=== PATIENT | female | born 1945 | race Caucasian/White ===

== ENCOUNTER 2018-10-13 08:25 | Emergency (ER) | payer OTHER ==
[2018-10-13 08:47] VITALS: BP 146/80; TEMP 97.8; BMI 24.7
--- NOTE | 2018-10-13 09:07 | ED.PDOC ---
General ED Provider: Dr. TERE NUNEZ Chief Complaint: Foot Pain/Injury Stated Complaint: Lt foot pain. Hx prev fracture distal 5th metatarsal. Was seen by ortho-placed in walking foot. Is From [place] and traveling back home from [place]. Last evening was not wearing her boot and accidently struck /twisted lt foot against concreted curb. Experienced sever pain. No deformity. Time Seen by Physician: 08:50 Mode of Arrival: Walk-In Information Source: Patient Nursing and Triage Documentation Reviewed and Agree: Yes Does patient meet sepsis criteria?: No If yes, has appropriate treatment been initiated?: No System Inflammatory Response Syndrome: Not Applicable Sepsis Protocol: For patient's 13 years and over: Temp is 96.8 and below OR 101 and greater Pulse >90 BPM Resp >20/minute Acutely Altered Mental Status Are patient's symptoms suggestive of a new infection, such as: -Pneumonia -Skin, Soft Tissue -Endocarditis -UTI -Bone, Joint Infection -Implantable Device -Acute Abdominal Infection -Wound Infection -Meningitis -Blood Stream Catheter Infection -Unknown Musculoskeletal Complaint Exam - Ankle/Foot Complaint/Exam Location of Injury: Reports: Left, Foot (5th metatarsal) Mechanism of Injury: Reports: Trauma Onset/Duration: 12 hrs Symptoms Are: Reports: Still present Onset of Pain: Reports: Immediate, Post accident Initial Severity: Mild Current Severity: Moderate Location: Reports: Discrete Character: Reports: Aching, Throbbing Alleviating: Reports: Rest, Cold Aggravating: Reports: Movement, Weight bearing Able to Bear Weight: Yes Associated Signs and Symptoms: Reports: Swelling Related History: Reports: Similar episode Gout Risk Factors: Reports: None, Hyperlipidemia Lower Extremity Findings: Present: Swelling, Tenderness Achilles Tendon Abnormality: No Tenderness: Present: Metatarsals Ankle/Foot Picture: 1 - distal lt 5th MT Differential Diagnosis: Closed Fracture, Strain Review of Systems - Review Of Systems Constitutional: Reports: No symptoms Eyes: Reports: No symptoms Ears, Nose, Mouth, Throat: Reports: No symptoms Respiratory: Reports: No symptoms Cardiac: Reports: No symptoms GI: Reports: No symptoms : Reports: No symptoms Musculoskeletal: Reports: No symptoms Skin: Reports: No symptoms Neurological: Reports: No symptoms Endocrine: Reports: No symptoms Hematologic/Lymphatic: Reports: No symptoms All Other Systems: Reviewed and Negative Past Medical History - Past Medical History Previously Healthy: Yes Endocrine: Reports: None Cardiovascular: Reports: None Respiratory: Reports: None Hematological: Reports: None Gastrointestinal: Reports: None Genitourinary: Reports: None Neuro/Psych: Reports: None Musculoskeletal: Reports: None, Joint Pain Cancer: Reports: None Last Menstrual Period: hysterectomy - Surgical History General Surgical History: Reports: None - Family History Family History: Reports: None - Social History Smoking Status: Never smoker Hx Substance Use: No Alcohol Screening: Occasionally Physical Exam - Physical Exam Appearance: Well-appearing, No pain distress, Well-nourished Eyes: LEWIS, EOMI, Conjunctiva clear ENT: Ears normal, Nose normal, Oropharynx normal Respiratory: Airway patent, Breath sounds clear, Breath sounds equal, Respirations nonlabored Cardiovascular: RRR, Pulses normal, No rub, No murmur GI/: Soft, Nontender, No masses, Bowel sounds normal, No Organomegaly Musculoskeletal: Normal strength, ROM intact, No calf tenderness, Edema (lt foot distal 5th Metatarsal) Skin: Warm, Dry, Normal color Neurological: Sensation intact, Motor intact, Reflexes intact, Cranial nerves intact, Alert, Oriented Psychiatric: Affect appropriate, Mood appropriate Re-Evaluation - Re-Evaluation Time of Re-Evaluation: 09:00 Status: Improved Vital Signs Stable: Yes Appearance: NAD Lungs: Clear Skin: Warm and Dry Neuro: Alert and Oriented X3 CV: Other Critical Care Note - Critical Care Note Total Time (mins): 0 Course - Course Orders, Labs, Meds: Orders Category Date Time Status FOOT, LEFT 3 VIEWS Stat RADS 10/13/18 09:02 Ordered Vital Signs: Temp Pulse Resp BP Pulse Ox 10/13/18 08:26 97.8 F 62 20 146/80 H 97 Departure - Departure Time of Disposition: 09:10 Disposition: HOME SELF-CARE Discharge Problem: Fracture of base of fifth metatarsal bone of left foot, Contusion of left foot Discharge Problem: (Ruled Out): Panic anxiety syndrome, Hx of substance abuse Instructions: Foot Fracture in Adults (ED) Condition: Good Pt referred to PMD for follow-up: Yes IPMP verified?: No Additional Instructions: Wear boot lt foot Minimize weight bearing ambulation Take Ibuprofen or aleve for pain May also take Tylenol as needed for additional pain control Keep Foot elevated, apply ice pack for 20 min 4 times daily See PCP or ortho when arriving back home Allergies/Adverse Reactions: Allergies erythromycin base Adverse Reaction (Verified 10/13/18 08:36) Home Medications: Ambulatory Orders Amlodipine Besylate 2.5 mg PO DAILY 10/13/18 Atenolol 25 mg PO DAILY 10/13/18 Atorvastatin Calcium 10 mg PO BEDTIME 10/13/18 Transfer Form Completed: Yes Disposition Discussed With: Patient, Family
--- NOTE | 2018-10-13 09:34 | DI ---
EXAM: Three views of the left foot. History: Trauma of the fifth metatarsal. Findings: Nondisplaced transverse fracture through the proximal fifth metatarsal shaft. No dislocat ion. Mild narrowing of the first MTP joint with small osteophytes. Impression: Nondisplaced fracture of the proximal fifth metatarsal shaft.
== END 2018-10-13 09:45 | disposition home or self-care (01) ==
LOC: ED 08:25
DX: S92.352A Displaced fracture of fifth metatarsal bone, left foot, initial encounter for closed fracture (principal); S90.32XA Contusion of left foot, initial encounter; W22.09XA Striking against other stationary object, initial encounter
CPT/HCPCS: 99282